=== PATIENT | male | born 1945 | race Caucasian/White ===

== ENCOUNTER 2022-05-25 09:00 | Day surgery (SDC) | payer MEDICARE ==
[2022-05-22 11:40] LABS: BASOPHILS # (AUTO) 0.1 X10'3 (0-0.2); BASOPHILS % (AUTO) 1.1 % (0-1); EOSINOPHILS # (AUTO) 0.3 X10'3 (0-0.9); EOSINOPHILS % (AUTO) 4.3 % (0-6); HEMATOCRIT 37.9 % (42.0-52.0); HEMOGLOBIN 12.7 g/dl (14.0-17.9); LYMPHOCYTES # (AUTO) 1.4 X10'3 (1.1-4.8); MEAN CORPUSCULAR HGB CONC 33.6 g/dL (33.0-36.5); MEAN CORPUSCULAR VOLUME 89.3 FL (78-98); MEAN PLATELET VOLUME 7.8 FL (7.4-10.4); MONOCYTES # (AUTO) 0.6 X10'3 (0-0.9); MONOCYTES % (AUTO) 8.9 % (2-12); NEUTROPHILS # (AUTO) 4.1 X10'3 (1.8-7.7); NEUTROPHILS % (AUTO) 63.7 % (42-75); PLATELET COUNT 178 X10'3 (140-440); RED BLOOD COUNT 4.24 X10'6 (4.70-6.10); WHITE BLOOD COUNT 6.4 X10'3 (4.5-11.0)
[2022-05-22 11:51] LABS: ANION GAP 9 (8-16); BLOOD UREA NITROGEN 18 MG/DL (7-18); BUN/CREATININE RATIO 12.2 (5.4-32.0); CALCIUM 9.1 MG/DL (8.5-10.1); CHLORIDE 106 MMOL/L (99-107); CREATININE 1.48 MG/DL (0.60-1.10); GLUCOSE 99 MG/DL (70-104); SODIUM 140 MMOL/L (135-145); TOTAL CARBON DIOXIDE 24.9 MMOL/L (24-32); eGFR 46 ML/MIN
[2022-05-22 11:55] LABS: APTT 32 SECONDS (22-32)
[2022-05-25] VITALS (11 sets, daily range): BP systolic 117–148; BP diastolic 63–84
[~2022-05-25] VITALS: Ht 177.8 cm; Wt 122.8 kg
[2022-05-25] MEDS ORDERED: verapamil 2.5 mg/ml inj IV ONE (09:03)
[2022-05-25] MEDS ORDERED: nitroGLYCERIN-Tridil 50MG/D5W 250 ML IV ONE (09:03)
[2022-05-25] MEDS ORDERED: midazolam 1 mg/ML 2ml injection ONE (09:03)
[2022-05-25] MEDS ORDERED: iohexol 350MG/ML 100ml bottle IV ONE (09:04)
[2022-05-25] MEDS ORDERED: LIDOcaine 1% (10mg/ml) 2ml vial ONE (09:04)
[2022-05-25] MEDS ORDERED: heparin 1,000unit/ml 10ml vial 10 ML ONE (09:04)
[2022-05-25] MEDS ORDERED: fentaNYL/PF 50MCG/1 ML 2ML syringe ONE (09:04)
[2022-05-25] MEDS ORDERED: LIDOcaine/PRILOcaine 5gm cream TP ONE (09:20)
[2022-05-25] MEDS ORDERED: sodium bicarbonate (8.4%) inj. 150 ML in dextrose 5%-water 1,000 ML IV ONE (09:20)
[2022-05-25] MEDS ORDERED: LORazepam 0.5 MG tablet PO PRN (09:20)
[2022-05-25] MEDS ORDERED: normal saline 1,000 ML IV SCH (09:20)
[2022-05-25] MEDS ORDERED: diphenhydrAMINE 25mg capsule PO PRN (10:10)
[2022-05-25] MEDS: acetylcysteine 200 MG/ml 4ml vial PO PRN ×2 (10:19→17:22)
[2022-05-25] MEDS ORDERED: LISI10TA27 PO (10:56)
[2022-05-25] MEDS ORDERED: DILT240C47 PO (10:56)
[2022-05-25] MEDS ORDERED: APIX5TAB3 PO (10:56)
[2022-05-25] MEDS ORDERED: DIPH25CA52 PO (11:09)
[2022-05-25] MEDS ORDERED: TURM500T PO (11:09)
[2022-05-25] MEDS ORDERED: CoQ10 PO (11:09)
[2022-05-25] MEDS ORDERED: CHOL100046 PO (11:09)
[2022-05-25] MEDS ORDERED: IBUP-2697 PEG (11:09)
[2022-05-25] MEDS ORDERED: ASCO-139 PO (11:09)
[2022-05-25] MEDS ORDERED: ALBU18HF2 IH (11:09)
[2022-05-25] MEDS ORDERED: MAGN400C PO (11:09)
[2022-05-25] MEDS ORDERED: Flaxseed Oil PO (11:09)
[2022-05-25 12:28] LABS: ISTAT HGB ART 11.9 g/dl (14.0-18.0); ISTAT Hct ART 35 %PCV (42-52); ISTAT O2 SATURATION ARTERIAL 96 % (95-98); ISTAT SOURCE ART
[2022-05-25 13:58] LABS: ISTAT Hct MIX 35 %PCV (42-52); ISTAT O2 SATURATION MIX VENOUS 68 % (60-80); ISTAT SOURCE VEN
--- NOTE | 2022-05-25 15:15 | NUR ---
Pt ambulated in room to bathroom, site stable, DRSG CD&I. VS stable as charted.
--- NOTE | 2022-05-25 15:32 | NUR ---
Pt sitting up in bed, eating lunch tray. Denies cp, denies sob.
[2022-05-25] MEDS ORDERED: sodium bicarbonate (8.4%) inj. 150 MEQ in dextrose 5%-water 1,000 ML IV SCH (16:25)
== END 2022-05-25 18:00 | disposition home or self-care (01) ==
LOC: SSTAY O 09:00
PROVIDERS: ATTEND Internal Medicine Cardiovascular Disease
DX: R94.30 Abnormal result of cardiovascular function study, unspecified (principal); I25.10 Atherosclerotic heart disease of native coronary artery without angina pectoris; I10 Essential (primary) hypertension; E78.5 Hyperlipidemia, unspecified; Z79.01 Long term (current) use of anticoagulants; Z79.899 Other long term (current) drug therapy; I48.91 Unspecified atrial fibrillation; Z80.8 Family history of malignant neoplasm of other organs or systems; Z82.49 Family history of ischemic heart disease and other diseases of the circulatory system; Z98.890 Other specified postprocedural states
CPT/HCPCS: 36415; 76937; 80048; 82803; 85014; 85025; 85610; 85730; 93005; 93460; 99152; 99153; A6258; C1751; C1769; J1644; J2250; J3010; J3490; J7030; J7070; Q0163; Q9967; A4620; A5120; A6402